=== PATIENT | male | born 1950 | race Caucasian/White ===

== ENCOUNTER 2017-04-25 05:11 | Emergency (ER) | payer BC ==
[2017-04-25] MEDS ORDERED: NS 0.9% 1000 ML* 1,000 ML IV ONE (05:46)
[2017-04-25 06:46] LABS: ABS Basophils 0 10^3/ul (0-0.2); ABS Eosinophils 0.1 10^3/ul (0-0.6); ABS Monocytes 0.6 10^3/ul (0-0.8); ABS Neutrophils 3.6 10^3/ul (1.5-7.7); ABS Nucleated RBC 0 10^3/ul; Eosinophil % 1.8 % (0-6); Hematocrit 39 % (42-52); Hemoglobin 13.7 g/dl (14.0-18.0); Lymphocyte % 19.3 % (25-47); Mean Corpuscular HGB Conc 35 g/dl (31-36); Mean Corpuscular Hemoglobin 33 pg (27-31); Mean Corpuscular Volume 93 fL (80-94); Mean Platelet Volume 10 um3 (7.4-10.4); Nucleated Red Blood Cells % 0; Platelet Count 148 10^3/ul (150-450); Red Blood Count 4.22 10^6/ul (4.0-5.4); Red Cell Distribution Width 13 % (10.5-15); White Blood Count 5.4 10^3/ul (3.5-10.8)
[2017-04-25 06:58] LABS: EGFR Non-African American 86.1 (>60)
[2017-04-25 07:10] LABS: INR 0.86 (0.77-1.02)
[2017-04-25 07:36] LABS: Urine Appearance Clear; Urine Blood Negative (Negative); Urine Color Straw; Urine Ketones Negative (Negative); Urine Protein Negative (Negative); Urine Specific Gravity 1.006 (1.010-1.030); Urine Urobilinogen Negative (Negative)
--- NOTE | 2017-04-25 08:11 | RAD ---
INDICATION: Shortness of breath. COMPARISON: Comparison is made with a prior study from September 04, 2016. TECHNIQUE: A portable view of the chest was obtained. FINDINGS: Cardiac and mediastinal contours appear to be within normal limits. The lungs are normally inflated. There is a faint area of increased density which projects over the right upper lobe and right anterior first rib possibly artifactual although a small pulmonary nodule cannot be excluded. This measures approximately 1.2 cm in size. The lungs are clear. No pleural effusion is seen. The results of this exam were discussed with Dr. Marinelli. IMPRESSION: 1. POSSIBLE RIGHT UPPER LOBE PULMONARY NODULE. RECOMMEND A DUAL-ENERGY PA AND LATERAL CHEST FILMS FOR FURTHER EVALUATION. 2. NO EVIDENCE FOR ACUTE FINDING.
--- NOTE | 2017-04-25 08:24 | RAD ---
INDICATION: Abdominal pain. COMPARISON: There are no prior studies available for comparison. TECHNIQUE: Multiple real-time images of the right upper quadrant were obtained. FINDINGS: The gallbladder appear normal. No gallbladder wall thickening or pericholecystic fluid is present. No intra or extrahepatic ductal distention is present. The common bile duct measured 0.3 cm in diameter. The liver is normal in size and echogenicity. There are 2 small cysts present measuring 0.8 x 0.9 x 1.0 and 1.0 x 0.8 x 0.9 cm each. The pancreas is partially obscured by overlying bowel gas. No pancreatic ductal distention is noted. The right kidney is normal in size without evidence for hydronephrosis. IMPRESSION: 1. NORMAL EXAMINATION OF THE GALLBLADDER. 2. SMALL HEPATIC CYSTS.
--- NOTE | 2017-04-25 08:49 | RAD ---
INDICATION: Possible pulmonary nodule. COMPARISON: Comparison is made with prior chest x-ray studies from September 04, 2016 and April 25, 2017. TECHNIQUE: Dual-energy PA and lateral views of the chest were obtained. FINDINGS: The heart is within normal limits in size. Mediastinal and hilar contours appear within normal limits. There is biapical pleural-parenchymal scarring. The lungs are otherwise clear. The previously noted area of increased density which projected over the right upper lobe is not visualized and was likely artifactual due to overlying structures. There is flattening of the diaphragms suggestive of chronic obstructive pulmonary disease. No pleural effusion is seen. IMPRESSION: NO EVIDENCE FOR ACTIVE CARDIOPULMONARY DISEASE.
[2017-04-25 09:02] VITALS: BP 108/86
--- NOTE | 2017-04-25 19:22 | ED ---
Kamron Gilmore Nilda, scribed for Km Soriano MD on 04/25/17 at 0536 . Abdominal Pain/Male - HPI Summary HPI Summary: This patient is a 66 year old M presenting to [facility] accompanied by with a chief complaint of constant non-radiating RUQ pain that has been decreasing in intensity since yesterday afternoon. The patient rates the pain 1/10 in severity. Symptoms aggravated by deep inspiration and alleviated by nothing including BM (last one was yesterday evening). Patient reports cough secondary to past Hx flu. Patient denies N/V, and fever. He states recent diet changes due to root canal (now eating more smoothies). Pt states he's active and denies long travel outside country and domestic. No PSHx. - History of Current Complaint Chief Complaint: EDAbdPain Stated Complaint: ABD PAIN Time Seen by Provider: 04/25/17 05:27 Hx Obtained From: Patient Onset/Duration: Sudden Onset, Lasting Hours, Still Present Timing: Constant Severity Initially: Mild Severity Currently: Mild Pain Intensity: 1 Pain Scale Used: 0-10 Numeric Location: Discrete At: RUQ Radiates: No Aggravating Factor(s): Deep Breaths Alleviating Factor(s): Nothing Associated Signs And Symptoms: Positive: Other - cough secondary to past Hx flu. Patient denies N/V, and fever - Allergies/Home Medications Allergies/Adverse Reactions: Allergies Allergy/AdvReac Type Severity Reaction Status Date / Time Sulfa (Sulfonamide Allergy Rash Verified 04/25/17 05:12 Antibiotics) PMH/Surg Hx/FS Hx/Imm Hx Endocrine/Hematology History: Denies: Hx Diabetes Cardiovascular History: Denies: Hx Hypertension, Hx Pacemaker/ICD History: Denies: Hx Renal Disease Musculoskeletal History: Denies: Hx Rheumatoid Arthritis, Hx Osteoporosis Sensory History: Denies: Hx Hearing Aid Psychiatric History: Denies: Hx Panic Disorder - Surgical History Surgery Procedure, Year, and Place: TONSEILECTOMY. CATARACT Infectious Disease History: Yes Infectious Disease History: Denies: Traveled Outside the [place] in Last 30 Days - Family History Known Family History: Negative: Hypertension, Diabetes - Social History Hx Tobacco Use: No Review of Systems Negative: Fever Positive: Cough Positive: Abdominal Pain - RUQ pain, Other - recent diet changes. Negative: Vomiting, Nausea All Other Systems Reviewed And Are Negative: Yes Physical Exam - Summary Physical Exam Summary: VITAL SIGNS: Reviewed. GENERAL: Patient is a well-developed and nourished male who is lying comfortable in the stretcher. Patient is not in any acute respiratory distress. HEAD AND FACE: No signs of trauma. No ecchymosis, hematomas or skull depressions. No sinus tenderness. EYES: PERRLA, EOMI x 2, No injected conjunctiva, no nystagmus. EARS: Hearing grossly intact. Ear canals and tympanic membranes are within normal limits. MOUTH: Oropharynx within normal limits. NECK: Supple, trachea is midline, no adenopathy, no JVD, no carotid bruit, no c- spine tenderness, neck with full ROM. CHEST: Symmetric, no tenderness at palpation LUNGS: Clear to auscultation bilaterally. No wheezing or crackles. CVS: Regular rate and rhythm, S1 and S2 present, no murmurs or gallops appreciated. ABDOMEN: Soft, Mild RUQ tenderness with deep palpation. No signs of distention. No rebound no guarding, and no masses palpated. Bowel sounds are normal. EXTREMITIES: FROM in all major joints, no edema, no cyanosis or clubbing. NEURO: Alert and oriented x 3. No acute neurological deficits. Speech is normal and follows commands. SKIN: Dry and warm Triage Information Reviewed: Yes Vital Signs On Initial Exam: Initial Vitals Temp Pulse Resp BP Pulse Ox 97.3 F 58 18 129/83 99 04/25/17 05:13 04/25/17 05:13 04/25/17 05:13 04/25/17 05:13 04/25/17 05:13 Vital Signs Reviewed: Yes Diagnostics - Vital Signs Vital Signs Temp Pulse Resp BP Pulse Ox 04/25/17 05:13 97.3 F 58 18 129/83 99 - Laboratory Result Diagrams: 04/25/17 06:03 04/25/17 06:03 Lab Statement: Any lab studies that have been ordered have been reviewed, and results considered in the medical decision making process. Abdominal Pain Fem Course/Dx - Course Assessment/Plan: Pt is 66 y/o with RUQ pain. On exam, RUQ tenderness on deep palpation. Pt is s/o to Dr. Marinelli, pending dispo, awaiting US Abd/Pel and CXR. - Diagnoses Provider Diagnoses: RUQ pain Discharge - Discharge Plan Condition: Stable Disposition: OTHER Discharge Disposition Comment: Pt is s/o to Dr. Marinelli, pending dispo, awaiting US Abd/Pel and CXR. Referrals: Vamshi Paez MD [Primary Care Provider] - The documentation as recorded by the Kamron galicia Nilda accurately reflects the service I personally performed and the decisions made by me, Km Soriano MD.
--- NOTE | 2017-04-26 09:20 | ED ---
Jaswinder Gilmore Angela, scribed for Raj Marinelli MD on 04/25/17 at 0823 . Progress - Progress Note Progress Note: This pt was signed out by Dr. Soriano, pending disposition, awaiting US gallbladder and chest XR. Pt is a 66 y/o male presenting to [facility] c/o non-radiating RUQ abd pain since yesterday afternoon. Physical Exam: VITAL SIGNS: Reviewed. GENERAL: Patient is a well-developed and nourished male who is lying comfortable in the stretcher. Patient is not in any acute respiratory distress. HEAD AND FACE: Normocephalic and atraumatic. EYES: PERRLA, EOMI x 2, No injected conjunctiva. EARS: Hearing grossly intact. Ear canals and tympanic membranes are WNL. MOUTH: Oropharynx within normal limits. NECK: Supple, trachea is midline, no adenopathy, no JVD. CHEST: Symmetric, no tenderness at palpation LUNGS: Clear to auscultation bilaterally. No wheezing or crackles. CVS: RRR, S1 and S2 present, no murmurs or gallops appreciated. ABDOMEN: Soft, non-tender. No signs of distention. Positive bowel sounds. No rebound no guarding, and no masses palpated. No abdominal bruit or pulsations. EXTREMITIES: FROM in all major joints, no edema, no cyanosis or clubbing. NEURO: Alert and oriented x 3. No acute neurological deficits. Speech is normal. SKIN: Dry and warm Gallbladder US, as read by radiologist: IMPRESSION: 1. Normal examination of the gallbladder. 2. Small hepatic cysts. Portable Chest XR, as read by radiologist: IMPRESSION: 1. Possible right upper lobe pulmonary nodule. Recommend a dual-energy PA and lateral chest films for further evaluation. 2. No evidence for acute finding. PA and lateral Chest XR, as read by radiologist: IMPRESSION: No evidence for active cardiopulmonary disease. Dr. Marinelli has reviewed these radiology reports. Pt was signed out by Dr. Soriano to follow up on the gallbladder US. Test results without any significant abnormalities. Ultrasound of the gallbladder reveals 1. Normal examination of the gallbladder. 2. Small hepatic cysts. Chest XR shows no evidence for active cardiopulmonary disease. On re-evaluation, pt has no abdominal pain. He is comfortable and stable. In the physical exam there is no abdominal tenderness.Therefore, pt will be discharged to home with follow up from his PCP. Pt will be discharge to home, in stable condition, with a diagnosis of abdominal pain. Condition: Stable Disposition: Home Re-Evaluation - Re-Evaluation First Eval Re-Evaluation Time: 07:20 Change: Improved Comment: Pt currently has no pain. He is comfortable and stable. In the physical exam there is no tenderness. Second Eval Re-Evaluation Time: 08:50 Change: Improved Comment: I reviewed the ultrasound and chest XR results with the pt and . Course/Dx - Diagnoses Provider Diagnoses: Abdominal pain The documentation as recorded by the Jaswinder galicia Angela accurately reflects the service I personally performed and the decisions made by me, Raj Marinelli MD.
== END 2017-04-25 09:01 ==
LOC: ED 05:11
DX: R10.11 Right upper quadrant pain (principal); R05 Cough
CPT/HCPCS: 36415; 71045; 71046; 76705; 80053; 81003; 82150; 83690; 83735; 85025; 85379; 85610; 85730; 86140; 99283